=== PATIENT | female | born 1980 | race Caucasian/White ===

== ENCOUNTER → 2016-11-23 | Outpatient (CLI) | payer MEDICAID ==
--- NOTE | 2016-11-25 16:46 | RADIOLOGY REPORT PS360 ---
DIG MAMM-DX CLAUDETTE W/CAD, US BREAST-RT COMPLETE W/AXILLA [facility] PAT[facility] AGE: 36 years GENDER: Female COMPARISON: No previous. Baseline study? INDICATION: Palpable area right breast. No additional history provided ...DIAGNOSTIC BILATERAL MAMMOGRAM with spot views.... TECHNIQUE: MLO and cc view both breast. Additional axillary cc axillary both breast Additional spot views right breast mass include spot CC, MLO and 90 degree. FINDINGS: Moderate breast density bilateral RIGHT BREAST. Large mass with stippled calcifications and stellate margins evident deep upper outer quadrant right breast. 10 o'clock position This measures up to 2.3 cm maximally. It resides Deep right breast, near the chest wall.-. Highly suspicious for carcinoma. Carcinoma until proven otherwise. This corresponds with the palpable area. With this with highly suspicious mass of this character view may want proceed with surgical consult prior to than biopsy for appropriate subsequent planning. If then desire biopsied this be best performed by ultrasound-guided mammotome percutaneous biopsy., (but alternatively could be performed by stereotactic although this is not available until December 09) Moderate to generous breast density otherwise seen throughout upper-outer quadrant right breast with. No other focal areas of concern on right. Ultrasound to the performed of the right breast to further evaluate. See below Left breast: No focal areas of concern at the left breast. On this baseline study ...ULTRASOUND RIGHT BREAST including axillary survey... Ultrasound entire breast including axillary survey. Again these studies show the large mass at the deep right breast 10 o'clock position outer breast. It measures up to 2.3 cm maxillary carcinoma until proven otherwise. It would be although deep I believe ultrasound guided biopsy would be feasible (and can be performed before December 09.. Stereotactic biopsy could be utilized alternatively if desired on December 09 at [facility] ) . Survey of the remainder the breast shows no suspicious breast nodules. There is a small cyst 2:00 near nipple measuring 5 mm size. Survey of the axilla with limited but shows no significant findings on the submitted images. IMPRESSION: 1 . Large 2.3 cm solid mass deep upper outer quadrant right breast 10 o'clock position. . Highly suspicious for carcinoma/ Carcinoma until proven otherwise . Given such a may want to consider surgery consult prior to biopsy for appropriate overall planning. BI-RADS CATEGORY: 5_Highly Suggestive Malignancy RECOMMENDED FOLLOWUP: BX US BIOPSY Ultrasound biopsy likely more expedient (Or can be done by stereotactic December 09) (A letter has been sent to the patient regarding results of the study.) BI-RADS CATEGORY: RECOMMENDED FOLLOWUP: (A letter has been sent to the patient regarding results of the study.)
--- NOTE | 2016-11-25 16:46 | RADIOLOGY REPORT PS360 ---
DIG MAMM-DX CLAUDETTE W/CAD, US BREAST-RT COMPLETE W/AXILLA [facility] AGE: 36 years GENDER: Female COMPARISON: No previous. Baseline study? INDICATION: Palpable area right breast. No additional history provided ...DIAGNOSTIC BILATERAL MAMMOGRAM with spot views.... TECHNIQUE: MLO and cc view both breast. Additional axillary cc axillary both breast Additional spot views right breast mass include spot CC, MLO and 90 degree. FINDINGS: Moderate breast density bilateral RIGHT BREAST. Large mass with stippled calcifications and stellate margins evident deep upper outer quadrant right breast. 10 o'clock position This measures up to 2.3 cm maximally. It resides Deep right breast, near the chest wall.-. Highly suspicious for carcinoma. Carcinoma until proven otherwise. This corresponds with the palpable area. With this with highly suspicious mass of this character view may want proceed with surgical consult prior to than biopsy for appropriate subsequent planning. If then desire biopsied this be best performed by ultrasound-guided mammotome percutaneous biopsy., (but alternatively could be performed by stereotactic although this is not available until December 09) Moderate to generous breast density otherwise seen throughout upper-outer quadrant right breast with. No other focal areas of concern on right. Ultrasound to the performed of the right breast to further evaluate. See below Left breast: No focal areas of concern at the left breast. On this baseline study ...ULTRASOUND RIGHT BREAST including axillary survey... Ultrasound entire breast including axillary survey. Again these studies show the large mass at the deep right breast 10 o'clock position outer breast. It measures up to 2.3 cm maxillary carcinoma until proven otherwise. It would be although deep I believe ultrasound guided biopsy would be feasible (and can be performed before December 09.. Stereotactic biopsy could be utilized alternatively if desired on December 09 at [facility] ) . Survey of the remainder the breast shows no suspicious breast nodules. There is a small cyst 2:00 near nipple measuring 5 mm size. Survey of the axilla with limited but shows no significant findings on the submitted images. IMPRESSION: 1 . Large 2.3 cm solid mass deep upper outer quadrant right breast 10 o'clock position. . Highly suspicious for carcinoma/ Carcinoma until proven otherwise . Given such a may want to consider surgery consult prior to biopsy for appropriate overall planning. BI-RADS CATEGORY: 5_Highly Suggestive Malignancy RECOMMENDED FOLLOWUP: BX US BIOPSY Ultrasound biopsy likely more expedient (Or can be done by stereotactic December 09) (A letter has been sent to the patient regarding results of the study.) BI-RADS CATEGORY: RECOMMENDED FOLLOWUP: (A letter has been sent to the patient regarding results of the study.)
== END ==
LOC: RAD 12:51
DX: N63 Unspecified lump in breast (principal); R92.8 Other abnormal and inconclusive findings on diagnostic imaging of breast
CPT/HCPCS: G0204

== ENCOUNTER → 2016-11-30 | Outpatient (CLI) | payer MEDICAID ==
--- NOTE | 2016-12-03 21:51 | RADIOLOGY REPORT PS360 ---
US BREAST-RT COMPLETE W/AXILLA US MAMMOTOME W/CLIP RT BREAST, US ORGAN SITE (BREAST), DIG MAMM-DX UNI-RT W/CAD,. Postbiopsy HISTORY: Right breast mass deep axillary tail right breast 10 o'clock position As seen previous ultrasound and mammogram. ========= ---RIGHT BREAST ULTRASOUND-COMPLETE--- FINDINGS: Today's ultrasound again demonstrates the nodule at location described in history. This irregular lobulated solid mass with stippled calcifications centrally. It measures up to 2.4 cm transverse x 2.2 cm length x 0.3 cm AP. These images confirm the mass and determined the best approach for access to perform aspiration or biopsy of this nodule. Scanning by Dr. Reyes and technologist MW. To be thorough we again surveyed the axilla right breast. Numerous benign-appearing nodes but no suspicious nodes. All nodes demonstrate fairly thin cortex- less than 2.5 mm cortex. ----ULTRASOUND-GUIDED BIOPSY BREAST RIGHT BREAST Following sterile preparation as well as local skin, and deep placement of Xylocaine anesthetic posterior to nodule, a small 2 mm incision was made in the skin by Dr. Reyes. Under ultrasound guidance the mammotome vacuum assisted core biopsy needle, was advanced to the nodule. Needle was positioned at or along the posterior aspect of the nodule with multiple core biopsies then obtained and subsequently submitted to pathology. A significant portion of this large mass was sampled but significant residual remains A metallic clip with collagen plug was placed at the end of procedure and confirmed to be in good position on subsequent mammogram . Patient tolerated procedure well. ------DIAGNOSTIC RIGHT MAMMOGRAM POSTBIOPSY-----clip placement Postbiopsy changes in the metallic clip are seen along the posterior margin of the large suspicious mass at the the axillary tail of right breast... Although modest portion of the mass is removed a the large central portion of mass and calcifications remain Images reviewed with Dr. Calderon. There are other areas of moderate density in this breast but no discrete highly suspicious foci identified with ultrasound and mammogram. Nonetheless this young patient a warrant consideration and MRI breast . .. IMPRESSION/SUMMARY...... .Initial ultrasound again again confirms the large irregular suspicious mass at deep 10:00 right breast . Successful mammotome biopsy and clip placement at its posterior aspect- Large portion the large mass remains including calcifications to serve as targeting. 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 ER negative. CO negative. HER2 negative
== END ==
LOC: RAD 08:33
DX: R92.8 Other abnormal and inconclusive findings on diagnostic imaging of breast (principal); N63 Unspecified lump in breast
CPT/HCPCS: C2618; G0206-RT